=== PATIENT | male | born 1990 | race Caucasian/White ===

== ENCOUNTER 2016-11-03 03:01 | Emergency (ER) | payer SELFPAY ==
[2016-11-03 03:06] VITALS: BP 114/65
[2016-11-03] MEDS ORDERED: TYLENOL PO ONE (03:16)
[2016-11-03] MEDS ORDERED: TYLENOL ONE (03:17)
--- NOTE | 2016-11-03 03:52 | XRay Report ---
FINAL REPORT PROCEDURE: XR WRIST 3+V LT TECHNIQUE: LEFT wrist radiographs, including AP, lateral, and oblique views. CPT 19677 HISTORY: Fall, Pain to left wrist, PATIENT STATES HE CUT LT WRIST DURING FALL WITH GLASS DOOR. COMPARISON: No prior studies are available for comparison. FINDINGS: Fracture (s) and/or Dislocation(s): None . Alignment: Normal . Joint space(s): Normal . Soft tissues: Normal . Bone mineralization: Normal . Foreign bodies: None . IMPRESSION: Normal Examination.
== END 2016-11-03 07:47 | disposition left against medical advice (07) ==
LOC: ED 03:01
DX: S69.92XA Unspecified injury of left wrist, hand and finger(s), initial encounter (principal); Z53.21 Procedure and treatment not carried out due to patient leaving prior to being seen by health care provider; X58.XXXA Exposure to other specified factors, initial encounter; Y93.9 Activity, unspecified; Y92.9 Unspecified place or not applicable; Y99.9 Unspecified external cause status

== ENCOUNTER 2018-03-06 21:08 | Emergency (ER) | payer MEDICAID ==
[2018-03-06] MEDS ORDERED: ZOFRAN ODT PO ONE (21:32)
[2018-03-06] MEDS ORDERED: ZOFRAN ODT ONE (21:35)
--- NOTE | 2018-03-06 23:35 | Cat Scan Report ---
FINAL REPORT PROCEDURE: CT HEAD/BRAIN WO CON TECHNIQUE: Computerized tomography of the head was performed without contrast material. HISTORY: fall with LOC and KHAN COMPARISON: No prior studies are available for comparison. FINDINGS: Skull and scalp: Normal. Paranasal sinuses: Mucosal thickening is noted involving bilateral maxillary sinuses.. Ventricles and subarachnoid spaces: Normal. Cerebrum: No evidence of hemorrhage, acute infarction or mass . Cerebellum and brainstem: No evidence of hemorrhage, acute infarction or mass. Vasculature: Normal. Comments: Adenoid hypertrophy is noted IMPRESSION: No acute intracranial abnormality Chronic bilateral maxillary sinusitis Adenoid hypertrophy
--- NOTE | 2018-03-06 23:53 | Cat Scan Report ---
FINAL REPORT PROCEDURE: CT CERVICAL SPINE WO CON TECHNIQUE: Computerized tomography of the cervical spine was performed from the skull base to T1 wit hout contrast material. HISTORY: fall with LOC and KHAN COMPARISON: No prior studies are available for comparison. FINDINGS: C1-2: No significant abnormality. C2-3: No significant abnormality. C3-4: No significant abnormality. C4-5: No significant abnormality. C5-6: No significant abnormality. C6-7: No significant abnormality. C7-T1: No significant abnormality. Other: No additional findings. IMPRESSION: No acute abnormality.
[2018-03-07 03:28] VITALS: BP 106/45
[2018-03-07] MEDS ORDERED: IBUPROFEN PO ONE (03:41)
--- NOTE | 2018-03-07 03:45 | Emergency Department Report ---
ED Fall HPI - General Chief Complaint: Fall Stated Complaint: FALL/HEAD PAIN/DIZZINESS/BACK PAIN Time Seen by Provider: 03/07/18 03:39 Source: patient Mode of arrival: Ambulatory - History of Present Illness Initial Comments: 27 0 male comes in reports that she caught in a hole and fell backwards about 1600 on Tuesday night. Patient complains of headache neck pain that sharp and burning with stiffness. He reports nausea and vomiting. Took Excedrin around 2039. He also has lower back pain is burning to his legs. He states he possible had loss of consciousness. Patient denies any dizziness prior to the fall. Patient reports the nausea medicine helped that was given to him in triage. Patient has no primary care provider. Denies any change of vision. MD Complaint: fall -: This evening Time: 16:00 (on day) Fall From: standing Place Fall Occurred: street ([address] in [place]) Loss of Consciousness: unsure Prolonged Down Time?: no Symptoms Prior to Fall: none Location: head, neck, back Severity scale (0 -10): 10 Quality: burning, sharp, aching Context: tripped/slipped Associated Symptoms: headache, neck pain - Related Data Previous Rx's Medication Instructions Recorded Last Taken Type Ibuprofen [Motrin 600 MG tab] 600 mg PO Q8H #30 tablet 03/07/18 Unknown Rx Allergies Allergy/AdvReac Type Severity Reaction Status Date / Time No Known Allergies Allergy Verified 11/03/16 03:15 ED Review of Systems ROS: Stated complaint: FALL/HEAD PAIN/DIZZINESS/BACK PAIN Other details as noted in HPI Comment: All other systems reviewed and negative Gastrointestinal: nausea, vomiting Musculoskeletal: back pain, arthralgia (neck pain) Neurological: headache ED Past Medical Hx - Past Medical History Previous Medical History?: No - Surgical History Past Surgical History?: Yes Additional Surgical History: Rt Hand - Social History Smoking Status: Current Every Day Smoker Substance Use Type: Alcohol - Medications Home Medications: Home Medications Medication Instructions Recorded Confirmed Last Taken Type Ibuprofen [Motrin 600 MG tab] 600 mg PO Q8H #30 tablet 03/07/18 Unknown Rx ED Physical Exam - General Limitations: No Limitations General appearance: alert, in no apparent distress - Head Head exam: Present: atraumatic, normocephalic - Eye Eye exam: Present: EOMI - ENT ENT exam: Present: mucous membranes moist - Neck Neck exam: Present: tenderness, full ROM - Respiratory Respiratory exam: Present: normal lung sounds bilaterally. Absent: respiratory distress - Cardiovascular Cardiovascular Exam: Present: regular rate, normal rhythm. Absent: systolic murmur, diastolic murmur, rubs, gallop - GI/Abdominal GI/Abdominal exam: Present: soft, normal bowel sounds - Back Exam Back exam: Present: tenderness, muscle spasm, paraspinal tenderness - Expanded Neurological Exam Expanded Patient oriented to: Present: person, place, time Cranial nerves: EOM's Intact: Normal, Gag Reflex: Normal, Tongue Deviation: Normal, Nystagmus: Normal, Facial Sensation: Normal, Facial Palsy with Forehead Movement: Normal, Facial Palsy without Forehead Movement: Normal Cerebellar function: Finger to Nose: Normal, Heel to [place]: Normal, Romberg: Normal Upper motor neuron: Benson Neglect: Normal, Pronator Drift: Normal, Babinski Sign: Normal, Sensory Extinction: Normal Sensory exam: Upper Extremity Light Touch: Normal, Upper Extremity Pin Prick: Normal, Upper Extremity Temperature: Normal, UE 2 Point Discrimination: Normal, Lower Extremity Light Touch: Normal, Lower Extremity Pin Prick: Normal Motor strength exam: RUE: 4, LUE: 4, RLE: 4, LLE: 4 Best Eye Response ([place]): (4) open spontaneously Best Motor Response ([place]): (6) obeys commands Best Verbal Response ([place]): (5) oriented Juan Total: 15 - Psychiatric Psychiatric exam: Present: normal affect, normal mood - Skin Skin exam: Present: warm, dry, intact, normal color. Absent: rash ED Course Vital Signs 03/06/18 03/07/18 21:20 03:26 Temperature 98.3 F Pulse Rate 100 H 77 Respiratory 16 Rate Blood Pressure 139/68 Blood Pressure 106/45 [Left] O2 Sat by Pulse 98 96 Oximetry ED Medical Decision Making - Radiology Data Radiology results: report reviewed FINAL REPORT PROCEDURE: CT HEAD/BRAIN WO CON TECHNIQUE: Computerized tomography of the head was performed without contrast material. HISTORY: fall with LOC and KHAN COMPARISON: No prior studies are available for comparison. FINDINGS: Skull and scalp: Normal. Paranasal sinuses: Mucosal thickening is noted involving bilateral maxillary sinuses.. Ventricles and subarachnoid spaces: Normal. Cerebrum: No evidence of hemorrhage, acute infarction or mass . Cerebellum and brainstem: No evidence of hemorrhage, acute infarction or mass. Vasculature: Normal. Comments: Adenoid hypertrophy is noted IMPRESSION: No acute intracranial abnormality Chronic bilateral maxillary sinusitis Adenoid hypertrophy Transcribed By: [facility] [place] Dictated By: JANENE GANN Electronically Authenticated By: JANENE GANN Signed Date/Time: 03/06/182334 DD/ 36 TD/TT: 03/06/182336 - Medical Decision Making Patient has been evaluated for this provider in fast track. CT scans neck and head are negative does show that he has some mild sinus issues. Normal exams within normal limits. Patient most likely has postconcussion syndrome Discussed with patient precautions for postconcussion syndrome. Patient is not to drive, use his cell phone, did not use computer or watch television. Make major decisions for 2 weeks. Patient is to follow-up with a primary care provider or neurology. Critical care attestation.: If time is entered above; I have spent that time in minutes in the direct care of this critically ill patient, excluding procedure time. ED Disposition Clinical Impression: Fall (on) (from) other stairs and steps, initial encounter, Post-concussion headache, Post concussion syndrome, Muscle strain of upper back Head injury due to trauma Qualifiers: Encounter type: initial encounter Qualified Code(s): S09.90XA - Unspecified injury of head, initial encounter Low back strain Qualifiers: Encounter type: initial encounter Qualified Code(s): S39.012A - Strain of muscle, fascia and tendon of lower back, initial encounter Disposition: - TO HOME OR SELFCARE Is pt being admited?: No Does the pt Need Aspirin: No Condition: Stable Instructions: Muscle Strain (ED), Post Concussion Syndrome (ED), Fall Prevention (ED), Low Back Strain (ED), Acute Headache (ED) Additional Instructions: Please take pain medication as prescribed. Please follow post concussion syndrome precautions. Follow-up with the primary care provider and neurologist. Prescriptions: Ibuprofen [Motrin 600 MG tab] 600 mg PO Q8H #30 tablet Referrals: SAURAV BARNES MD [Primary Care Provider] - 3-5 Days Forms: Work/School Release Form(ED), Accompanied Note
== END 2018-03-07 04:07 | disposition home or self-care (01) ==
LOC: ED 21:08
DX: S09.90XA Unspecified injury of head, initial encounter (principal); S39.012A Strain of muscle, fascia and tendon of lower back, initial encounter; S29.012A Strain of muscle and tendon of back wall of thorax, initial encounter; F07.81 Postconcussional syndrome; F17.200 Nicotine dependence, unspecified, uncomplicated; W10.9XXA Fall (on) (from) unspecified stairs and steps, initial encounter; Y93.89 Activity, other specified; Y99.8 Other external cause status; Y92.89 Other specified places as the place of occurrence of the external cause
CPT/HCPCS: 70450; 72125; 99283; Q0162

== ENCOUNTER 2018-03-11 19:58 | Emergency (ER) | payer MEDICAID ==
[2018-03-11] MEDS ORDERED: NACL 0.9% 1000 ML 1,000 ML IV ONE (20:45)
[2018-03-11] MEDS ORDERED: MORPHINE IV ONE (20:45)
--- NOTE | 2018-03-11 20:47 | Emergency Department Report ---
HPI - General Chief Complaint: Back Pain/Injury Time Seen by Provider: 03/11/18 20:32 - HPI HPI: 27-year-old male presents to the emergency department with complaint of continued low back pain, along with some radiation down both his legs, but he says has been going on since he had a fall about 5 days ago. The patient fell and hit his head, neck and back and came to this hospital on 03/06/18 for evaluation. At that time he had a CT scan of the head and cervical spine that did not show any acute process. He was discharged home to follow up with primary care and was given some postconcussion precautions. The patient says that the head and neck have improved, but he continues to have some low back pain that radiates down his legs. It is a burning pain in the back. He denies any numbness, problems with bowel or bladder, or any neurological deficits. He tried the ibuprofen for his discomfort without much relief. He denies any past medical history. ED Past Medical Hx - Past Medical History Previous Medical History?: No - Surgical History Additional Surgical History: Rt Hand - Social History Smoking Status: Current Every Day Smoker Substance Use Type: None - Medications Home Medications: Home Medications Medication Instructions Recorded Confirmed Last Taken Type RX: Ibuprofen [Motrin 600 MG tab] 600 mg PO Q8H #30 tablet 03/07/18 Unknown Rx HYDROcodone/APAP 5-325 [[place] 1 each PO Q6HR PRN #10 tablet 03/11/18 Unknown Rx 5/325] ED Review of Systems ROS: Stated complaint: BACK PAIN Other details as noted in HPI Comment: All other systems reviewed and negative Constitutional: denies: chills, fever Eyes: denies: eye pain, vision change ENT: denies: ear pain, throat pain Respiratory: denies: cough, shortness of breath Cardiovascular: denies: chest pain, palpitations Gastrointestinal: denies: abdominal pain, vomiting Genitourinary: denies: dysuria, discharge Musculoskeletal: back pain, myalgia Skin: denies: rash, lesions Neurological: denies: headache, numbness, paresthesias Physical Exam - Physical Exam Vital Signs: Vital Signs 03/11/18 03/11/18 20:02 20:04 Temperature 98.4 F 98.4 F Pulse Rate 91 H 87 Respiratory 18 18 Rate Blood Pressure 124/64 124/64 O2 Sat by Pulse 97 98 Oximetry Physical Exam: GENERAL: The patient is well-developed well-nourished. HEENT: Normocephalic. Atraumatic. Patient has moist mucous membranes. EYES: Extraocular motions are intact. NECK: Supple. Trachea is midline. CHEST/LUNGS: Clear to auscultation. There is no respiratory distress noted. HEART/CARDIOVASCULAR: Regular. There is no tachycardia. There is no obvious murmur. ABDOMEN: Abdomen is soft, nontender. There is no abdominal distention. SKIN: Skin is warm and dry. NEURO: The patient is awake, alert, and oriented. The patient is cooperative. The patient has no focal neurologic deficits. The patient has normal speech. MUSCULOSKELETAL: There is no tenderness or deformity. There is no limitation range of motion. There is no evidence of acute injury. Strength 5 out of 5 upper and lower extremities bilaterally. BACK: There is midline and bilateral paraspinal lower lumbar tenderness to palpation. No step-off or deformity. ED Course Vital Signs 03/11/18 03/11/18 20:02 20:04 Temperature 98.4 F 98.4 F Pulse Rate 91 H 87 Respiratory 18 18 Rate Blood Pressure 124/64 124/64 O2 Sat by Pulse 97 98 Oximetry ED Medical Decision Making - Lab Data Result diagrams: 03/11/18 21:11 03/11/18 21:11 - Radiology Data Radiology results: report reviewed PROCEDURE: CT LUMBAR SPINE WO CON TECHNIQUE: Computerized axial tomography of the lumbar spine was performed from T12 to the sacrum without contrast material. HISTORY: low back pain, trauma COMPARISON: No prior studies are available for comparison. FINDINGS: L1-2: No significant abnormality. L2-3: No significant abnormality. L3-4: No significant abnormality. L4-5: No significant abnormality. L5-S1: No significant abnormality. Other: None. IMPRESSION: No significant abnormality Transcribed By: [facility] [place] Dictated By: JANENE GANN Electronically Authenticated By: JANENE GANN Signed Date/Time: 03/11/182118 - Medical Decision Making Patient presents with the complaint of continued lower back pain since he was here a week ago for a fall. He says there is some radiation down the legs. He does not have any motor or sensory deficits. He has full muscle strength. There is no step-off or deformity to palpation of the lumbar back/spine. Labs were unremarkable including a CBC, BMP and urinalysis. Vital signs stable throughout his ED course including being afebrile. CT scan of the lumbar spine without contrast did not show any acute processes. The patient was seen ambulatory prior to discharge and appeared stable and says that he felt stable as well. Patient says he felt improved after IV fluid resuscitation and pain medication. He denies any problems with bowel or bladder, numbness or paresthesias or any neurological deficits. He appears low suspicion for any of the emergent back conditions such as cauda equina, epidural abscess, cord compression syndrome. He was given referrals for follow-up with orthopedic spine doctors and a neurologist. He will Return to ER for any worsening of his symptoms or any acute distress. - Differential Diagnosis sciatica, peripheral neuropathy, muscle spasm, lumbar strain, contusion Critical Care Time: No Critical care attestation.: If time is entered above; I have spent that time in minutes in the direct care of this critically ill patient, excluding procedure time. ED Disposition Clinical Impression: Low back pain Qualifiers: Chronicity: unspecified Back pain laterality: bilateral Sciatica presence: with sciatica Sciatica laterality: bilateral sciatica Qualified Code(s): M54.42 - Lumbago with sciatica, left side Peripheral neuropathy Qualifiers: Peripheral neuropathy type: polyneuropathy, unspecified Qualified Code(s): G62.9 - Polyneuropathy, unspecified Sciatica Qualifiers: Laterality: bilateral Qualified Code(s): M54.31 - Sciatica, right side Disposition: - TO HOME OR SELFCARE Is pt being admited?: No Condition: Stable Instructions: Sciatica (ED), Back Pain (ED) Additional Instructions: Please follow up with a primary care physician. I am giving you a referral for a local orthopedic group, [facility], as well as a local neurosurgeon, Dr Hernandez, to follow up regarding your back pain. Return to the emergency Department with any worsening of your symptoms or any acute distress. You have been prescribed a medication that can be sedating. Therefore, this medication cannot be taken prior to driving, working, being responsible for children, and cannot be mixed with alcohol of any quantity. Prescriptions: HYDROcodone/APAP 5-325 [[place] 5/325] 1 each PO Q6HR PRN #10 tablet PRN Reason: Pain Referrals: SUSY HERNANDEZ MD [Staff Physician] - 2-3 Days [facility] [Provider Group] - 2-3 Days Time of Disposition: 22:19
--- NOTE | 2018-03-11 21:19 | Cat Scan Report ---
FINAL REPORT PROCEDURE: CT LUMBAR SPINE WO CON TECHNIQUE: Computerized axial tomography of the lumbar spine was performed from T12 to the sacrum wi thout contrast material. HISTORY: low back pain, trauma COMPARISON: No prior studies are available for comparison. FINDINGS: L1-2: No significant abnormality. L2-3: No significant abnormality. L3-4: No significant abnormality. L4-5: No significant abnormality. L5-S1: No significant abnormality. Other: None. IMPRESSION: No significant abnormality
[2018-03-11] MEDS ORDERED: NORCO 5/325 PO ONE (21:21)
[2018-03-11] MEDS ORDERED: SOLU-Medrol IV ONE (21:22)
[2018-03-11 21:33] LABS: Basophils % (Auto) 0.5 % (0.0-1.8); Eosinophils # (Auto) 0.2 K/mm3 (0.0-0.4); Eosinophils % (Auto) 1.6 % (0.0-4.3); Hematocrit 41.3 % (35.5-45.6); Lymphocytes # (Auto) 2.6 K/mm3 (1.2-5.4); Lymphocytes % (Auto) 27.5 % (13.4-35.0); Mean Corpuscular HGB Conc 34 % (32-34); Mean Corpuscular Volume 89 fl (84-94); Monocytes # (Auto) 0.7 K/mm3 (0.0-0.8); Monocytes % (Auto) 7.3 % (0.0-7.3); Platelet Count 390 K/mm3 (140-440); Red Blood Count 4.63 M/mm3 (3.65-5.03); Red Cell Distribution Width 13.6 % (13.2-15.2)
[2018-03-11 21:41] LABS: BUN/Creatinine Ratio 12; Blood Urea Nitrogen 11 mg/dL (9-20); Calcium 9.3 mg/dL (8.4-10.2); Hemolysis Index 16
[2018-03-11 22:41] LABS: Bilirubin,Urine NEG (Negative); Blood,Urine NEG (Negative); Color,Urine Yellow (Yellow); Hyaline Casts,Urine 1 /LPF; Mucus,Urine FEW /HPF; Protein,Urine <15 mg/dL mg/dL (Negative); Urobilinogen,Urine < 2.0 mg/dL (<2.0); WBC,Urine < 1.0 /HPF (0.0-6.0)
[2018-03-12 14:40] VITALS: BP 113/76
== END 2018-03-11 22:46 | disposition home or self-care (01) ==
LOC: ED 19:58
DX: M54.41 Lumbago with sciatica, right side (principal); M54.42 Lumbago with sciatica, left side; G62.9 Polyneuropathy, unspecified; F17.200 Nicotine dependence, unspecified, uncomplicated
CPT/HCPCS: 36415; 72131; 80048; 81001; 85025; 96374; 99284; J2930; J7030